=== PATIENT | female | born 1995 | race Two or more races ===

== ENCOUNTER 2017-11-13 23:03 | Emergency (ER) | payer MEDICAID ==
[~2017-11-13] VITALS: Ht 165.1 cm; Wt 62.5 kg
[2017-11-13 23:04] VITALS: BP 116/79
[2017-11-13] MEDS ORDERED: DEXAMETHASONE 4 MG TABLET ONE (23:29)
[2017-11-13] MEDS ORDERED: DEXAMETHASONE 4 MG/ML, 1ML ONE (23:29)
[2017-11-13] MEDS ORDERED: DEXAMETHASONE 4 MG TABLET PO ONE (23:30)
== END 2017-11-14 | disposition home or self-care (01) ==
LOC: ED 23:59
DX: J02.0 Streptococcal pharyngitis (principal)
CPT/HCPCS: 99283

== ENCOUNTER 2018-01-17 02:25 | Emergency (ER) | payer MEDICAID ==
[~2018-01-17] VITALS: Ht 165.1 cm; Wt 61.2 kg
[2018-01-17 02:27] VITALS: BP 111/71
[2018-01-17] MEDS ORDERED: HYDROcodone/APAP 5/325 TABLET PO ONE (03:00)
[2018-01-17] MEDS ORDERED: ONDANSETRON ODT 4 MG PO ONE (03:00)
[2018-01-17] MEDS ORDERED: HYDROcodone/APAP 5/325 TABLET ONE (03:01)
[2018-01-17] MEDS ORDERED: ONDANSETRON ODT 4 MG ONE (03:01)
[2018-01-17 03:06] LABS: HCG UR SG 1.029 (1.003-1.030); MICROSCOPIC NOT IND
[2018-01-17 03:11] LABS: CULTURE INDICATED? NO
[2018-01-17 03:22] LABS: BASOPHILS # (AUTO) 0.05 x10^3/uL (0-0.1); BASOPHILS % (AUTO) 1 % (0-1); EOSINOPHILS # (AUTO) 0.07 x10^3/uL (0-0.4); EOSINOPHILS % (AUTO) 1 % (1-7); LYMPHOCYTES # (AUTO) 2.32 x10^3/uL (1-3.4); LYMPHOCYTES % (AUTO) 28 % (22-44); MD NO; MEAN CORPUSCULAR HEMOGLOBIN 30.6 pg (27.0-34.8); MEAN CORPUSCULAR HGB CONC 34.1 g/dL (32.4-35.8); MEAN CORPUSCULAR VOLUME 89.7 fL (80-100); MEAN PLATELET VOLUME 9.2 fL (7.4-10.4); MONOCYTES # (AUTO) 0.67 x10^3/uL (0.2-0.8); MONOCYTES % (AUTO) 8 % (2-9); NEUTROPHILS # (AUTO) 5.15 x10^3/uL (1.8-6.8); NEUTROPHILS % (AUTO) 62 % (42-75); PLATELET COUNT 280 x10^3/uL (130-400); RED BLOOD COUNT 4.33 x10^6/uL (3.82-5.3); RED CELL DISTRIBUTION WIDTH 12.8 % (9.6-15.2)
[2018-01-17 03:34] LABS: ALANINE AMINOTRANSFERASE 24 U/L (12-78); ANION GAP 6 mmol/L (5-15); CHLORIDE 110 mmol/L (98-107); CREATININE 0.62 mg/dL (0.55-1.02)
[2018-01-17 03:37] LABS: ALKALINE PHOSPHATASE 111 U/L (45-117); BILIRUBIN,TOTAL 0.3 mg/dL (0.2-1.0); TOTAL PROTEIN 7.3 g/dL (6.4-8.2)
== END 2018-01-17 04:43 | disposition home or self-care (01) ==
LOC: ED 03:30
DX: R10.31 Right lower quadrant pain (principal); R10.2 Pelvic and perineal pain; Z87.891 Personal history of nicotine dependence
CPT/HCPCS: 36415; 76770; 76830; 80053; 81003; 81025; 85025; 99285; Q0162

== ENCOUNTER 2018-05-23 10:49 | Emergency (ER) | payer MEDICAID ==
[~2018-05-23] VITALS: Ht 167.6 cm; Wt 64.0 kg
[2018-05-23 11:11] VITALS: BP 113/63
[2018-05-23] MEDS ORDERED: PREN-3 PO (11:11)
[2018-05-23] MEDS ORDERED: ONDANSETRON ODT 4 MG PO ONE (11:30)
[2018-05-23] MEDS ORDERED: ONDANSETRON ODT 4 MG ONE (11:34)
[2018-05-23 11:51] LABS: BASOPHILS # (AUTO) 0.03 x10^3/uL (0-0.1); BASOPHILS % (AUTO) 0 % (0-1); EOSINOPHILS # (AUTO) 0.23 x10^3/uL (0-0.4); EOSINOPHILS % (AUTO) 3 % (1-7); LYMPHOCYTES # (AUTO) 1.04 x10^3/uL (1-3.4); LYMPHOCYTES % (AUTO) 14 % (22-44); MD NO; MEAN CORPUSCULAR HEMOGLOBIN 30.8 pg (27.0-34.8); MEAN CORPUSCULAR HGB CONC 34.8 g/dL (32.4-35.8); MEAN CORPUSCULAR VOLUME 88.8 fL (80-100); MONOCYTES % (AUTO) 7 % (2-9); NEUTROPHILS # (AUTO) 5.52 x10^3/uL (1.8-6.8); NEUTROPHILS % (AUTO) 76 % (42-75); PLATELET COUNT 241 x10^3/uL (130-400); RED BLOOD COUNT 3.89 x10^6/uL (3.82-5.3); RED CELL DISTRIBUTION WIDTH 13.1 % (9.6-15.2)
[2018-05-23 11:55] LABS: MICROSCOPIC AUTO
[2018-05-23 12:02] LABS: ALBUMIN 3.1 g/dL (3.4-5.0); ANION GAP 7 mmol/L (5-15); CALCIUM 8.1 mg/dL (8.5-10.1); CHLORIDE 110 mmol/L (98-107)
[2018-05-23 12:02] LABS: CULTURE INDICATED? YES
[2018-05-23 12:05] LABS: ALANINE AMINOTRANSFERASE 18 U/L (12-78); ALKALINE PHOSPHATASE 96 U/L (45-117); BILIRUBIN,TOTAL 0.2 mg/dL (0.2-1.0); CREATININE 0.43 mg/dL (0.55-1.02); TOTAL PROTEIN 6.9 g/dL (6.4-8.2)
== END 2018-05-23 12:49 | disposition home or self-care (01) ==
LOC: ED 12:43
DX: O23.12 Infections of bladder in pregnancy, second trimester (principal); Z3A.19 19 weeks gestation of pregnancy; O21.9 Vomiting of pregnancy, unspecified
CPT/HCPCS: 36415; 76815; 80053; 81001; 85025; 87077; 87086; 87186; 99284; Q0162